=== PATIENT | male | born 1955 | race Caucasian/White ===

== ENCOUNTER 2018-04-24 20:03 | Inpatient (IN) | payer MEDICARE ==
[~2018-04-24 20:03] MED LIST: ISOVUE-370 76%-LOCM 1 ML ONE
[2018-04-24] MEDS ORDERED: Azithromycin 500 MG VIAL ONE (21:51)
[2018-04-24] MEDS ORDERED: cefTRIAXone\\ROCEPHIN 2 GM VIAL ONE (21:51)
[2018-04-24 22:02] LABS: Band 14 % (5-11); Hemoglobin 14.6 g/dL (14.0-18.0); Lymphocytes 3 % (21-51); MDiff Complete? YES; Mean Corpuscular HGB CONC 33.2 g/dL (32.0-36.0); Mean Corpuscular Hemoglobin 31.3 pg (27.0-31.0); Mean Corpuscular Volume 94.2 fL (78.0-98.0); Mean Platelet Volume 6.6 fL (7.4-10.4); Monocytes 5 % (0-10); Neutrophil 78 % (42-75); Platelet Count 414 thou/uL (130-400); Platelet Morphology Comment Appears Increased; Red Blood Cell (RBC) Count 4.67 mill/uL (4.70-6.10); White Blood Cell (WBC) Count 22.7 thou/uL (4.8-10.8)
[2018-04-24 22:11] LABS: ALT (SGPT) 42 U/L (8-55); AST (SGOT) 42 U/L (5-34); Albumin 3.2 g/dL (3.4-4.8); Alkaline Phosphatase 97 U/L (40-150); Anion Gap 14 mmol/L (10-20); BUN (Urea Nitrogen) 12 mg/dL (8.4-25.7); Bilirubin, Total 0.4 mg/dL (0.2-1.2); Calc. Creatinine Clearance 0 mL/min (70-130); Calcium 8.4 mg/dL (7.8-10.44); Carbon Dioxide 24 mmol/L (23-31); Chloride 98 mmol/L (98-107); Estimated GFR-MDRD Greater than 90; Globulin 3.5 g/dL (2.4-3.5); Glucose 119 mg/dL (80-115); Potassium 5.3 mmol/L (3.5-5.1); Protein, Total 6.7 g/dL (5.8-8.1); Sodium 131 mmol/L (136-145)
--- NOTE | 2018-04-24 22:19 | RAD ---
PA AND LATERAL CHEST RADIOGRAPH: Date: 04-24-18 History: Flu like symptoms for the last week. Comparison: 11-28-13 FINDINGS: There are increased interstitial densities with reticular nodular pattern seen throughout the lungs b ilaterally. Findings are worrisome for infectious process and possibly atypical infectious process. N o consolidation or pleural fluid is seen. The cardiac silhouette and pulmonary vasculature are within normal limits. Degenerative changes are seen in the spine. Vascular calcifications are seen in the t horacic aorta. IMPRESSION: Interval development of increased interstitial densities with reticulo-nodular pattern. Findings are worrisome for infectious process, and atypical infectious process is a possibility. POS: [facility]
[2018-04-24] MEDS ORDERED: Sodium Chloride 0.9% 1,000 ML IV SCH (23:49)
[2018-04-24] MEDS ORDERED: Senokot S 8.6-50 MG TAB PO PRN (23:49)
[2018-04-25 00:02] LABS: HIV (1/2) Antibody/Antigen Non-Reactive (NonReactive); HIV 1/2 INDEX 0.18 S/CO (<1.00)
--- NOTE | 2018-04-25 00:50 | HP ---
REASON FOR ADMISSION: Acute respiratory failure with hypoxia, sepsis, and pneumonia. HISTORY OF PRESENTING ILLNESS: The patient gives history of having bilateral chest pain, which is more like cramping feeling from last 3 weeks off and on. He tried NyQuil for a week, had no relief, then tried Tylenol p.m. with which he would break out in sweats. He has had evening fevers. He is expectorating yellowish sputum from last one week now. Prior to this, his coughing spells had mucoid white phlegm. No hemoptysis. 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 He has never been to [facility] or to any correction, and has never been out of the country. In 2016, the patient has had coughing spells and had seen Dr. Silva, and had a full PFT workup done and was told he did not have COPD. PAST MEDICAL AND SURGICAL HISTORY: Hypothyroidism, left knee surgery x4, hernia repair x3, they were all inguinal hernias. Colonoscopy done more than 10 years ago, which did not reveal any malignancy. CURRENT MEDICATION: Levothyroxine 200 mcg p.o. daily. ALLERGIES: NO KNOWN DRUG ALLERGIES. PERSONAL HISTORY: Smokes one pack a day and has been doing so for the last 25 years. Does not abuse alcohol or drugs. He lives alone. 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 FAMILY HISTORY: Mother is living and is 87 years old. She has had history of stomach cancer diagnosed recently. His biological father at the age of 64 years and was a heavy alcoholic. CODE STATUS: Full. POWER OF BET TAKER: His mom and stepdad. REVIEW OF SYSTEMS: CONSTITUTIONAL: Negative for weight loss or gain, ability to conduct usual activities. SKIN: Negative for rash, itching. EYES: Negative for double vision, pain. ENT/MOUTH: Negative for nose bleeding, neck stiffness, pain, tenderness. CARDIOVASCULAR: Negative for palpitations, dyspnea on exertion, orthopnea. RESPIRATORY: Negative for shortness of breath, wheezing, cough, hemoptysis, fever or night sweats. GASTROINTESTINAL: Negative for poor appetite, abdominal pain, heartburn, nausea , vomiting, constipation, or diarrhea. GENITOURINARY: Negative for urgency, frequency, dysuria, nocturia. MUSCULOSKELETAL: Negative for pain, swelling. NEUROLOGIC/PSYCHIATRIC: Negative for anxiety, depression. ALLERGY/IMMUNOLOGIC: Negative for skin rash, bleeding tendency. PHYSICAL EXAMINATION: GENERAL: The patient is a 63-year-old male, who is currently not in any acute distress. VITAL SIGNS: Blood pressure 128/76, pulse 106 per minute, respiratory rate 18 per minute, temperature 100.4 degrees Fahrenheit. Initial saturations were 80% on room air and has promptly come up to 94% on 4 L nasal cannula. NECK: Supple. No elevated JVD. HEENT: Eyes; extraocular muscles intact. Pupils reacting to light. Oral cavity, mucous membranes are dry. No exudates or congestion. CARDIOVASCULAR SYSTEM: S1 and S2 heard. Regular rhythm. RESPIRATORY SYSTEM: Air entry 1+ bilateral. Scattered rhonchi plus bilateral. ABDOMEN: Soft. Bowel sounds heard. No tenderness, rigidity, or guarding. EXTREMITIES: No peripheral edema or calf tenderness. VASCULAR SYSTEM: Peripheral pulses are 2+ bilaterally. No ischemic ulcerations or gangrene. CENTRAL NERVOUS SYSTEM: No gross focal deficits noted. The patient is alert, awake, oriented well. PSYCHIATRIC SYSTEM: The patient's mood is euthymic. No hallucinations or delusions. LABORATORY DATA: Chest x-ray done shows increased interstitial densities in reticular nodular pattern. Influenza A and B antigens are negative. Sodium 131 , potassium 5.3. Serum bicarb 24, BUN 12, creatinine 0.8, serum glucose 119, lactic acid 1.1. AST and ALT are 42 each. CK levels 257. First set of cardiac enzymes are negative. BNP 18. Albumin is 3.2. White count of 22, H and H are 14 and 44, platelet count is 414, MCV is 94 with 78% neutrophils and 14% bands. CLINICAL IMPRESSION AND PLAN: The patient will be admitted to telemetry for sepsis, atypical pneumonia, acute respiratory failure with hypoxia. Blood and sputum cultures will be obtained. CT angio chest has been ordered and will await the results of the same. He will be on ceftriaxone and Zithromax. We will gently hydrate him with normal saline at 60 mL per hour. The patient has received 30 mL per kg IV infusion in the ER. He will be on Mucinex, Tessalon Perles, and home dose of Synthroid. Echo with 2D Doppler for LV function. HIV 1 and 2 antigen will be obtained as well along with respiratory virus panel PCR. It is unclear if the patient has underlying pulmonary fibrosis. We will obtain consultation with Dr. Silva, his clamp remover. Job ID: [id number] [facility]
[2018-04-25 04:38] VITALS: BMI 28.8
[2018-04-25 05:00] LABS: Anion Gap 10 mmol/L (10-20); BUN (Urea Nitrogen) 9 mg/dL (8.4-25.7); Calc. Creatinine Clearance 126 mL/min (70-130); Calcium 8.2 mg/dL (7.8-10.44); Carbon Dioxide 25 mmol/L (23-31); Chloride 101 mmol/L (98-107); Estimated GFR-MDRD Greater than 90; Glucose 115 mg/dL (80-115); Potassium 4.1 mmol/L (3.5-5.1); Sodium 132 mmol/L (136-145)
[2018-04-25 05:09] LABS: Band 14 % (5-11); Hemoglobin 13.4 g/dL (14.0-18.0); Lymphocytes 5 % (21-51); MDiff Complete? YES; Mean Corpuscular HGB CONC 33.8 g/dL (32.0-36.0); Mean Corpuscular Hemoglobin 31.8 pg (27.0-31.0); Mean Corpuscular Volume 94.3 fL (78.0-98.0); Mean Platelet Volume 6.5 fL (7.4-10.4); Monocytes 11 % (0-10); Neutrophil 70 % (42-75); Platelet Count 362 thou/uL (130-400); Platelet Morphology Comment Appears Adequate; RBC Distribution Width 10.8 % (11.5-14.5); White Blood Cell (WBC) Count 19.6 thou/uL (4.8-10.8)
[2018-04-25 07:34] LABS: Legionella Urinary Ag Negative (Negative)
[2018-04-25 07:35] LABS: Strep pneumo Urine Ag NEGATIVE (NEGATIVE)
--- NOTE | 2018-04-25 08:16 | CT ---
CT ANGIOGRAM THORAX WITH IV CONTRAST AND 3D RECONSTRUCTIONS: Date: 04-24-18 History: Cough. Comparison: None available. FINDINGS: No filling defects are seen in the pulmonary arteries to suggest pulmonary embolus. Vascular calcific ations are seen in the aortic arch. The thoracic aorta is normal in caliber without evidence of an ao rtic dissection. There are nodular and reticular nodular densities seen bilaterally with punctate areas of cavitation in several of the nodular densities. There is an area of parenchymal consolidation within the right l maria esther apex medial aspect of the right upper lobe. These nodular and reticular nodular densities are see n diffusely throughout the lungs bilaterally but predominately within the mid and upper lung zones. There is mediastinal and hilar lymphadenopathy present. The largest pretracheal lymph node measures a pproximately 1.2 cm in short axis dimension with a subcarinal lymph node measuring 1.3 cm in short ax is dimension and there is a right hilar lymphnode measuring 1.7 cm in short axis dimension. Large pre vascular space and AP window lymph nodes are also present. Lymphadenopathy may be reactive in origin. No pleural effusion is present. There is suggestion of mild emphysematous changes in the upper lung z ones. There is a subcentimeter too small to characterize hyperdense lesion in the lateral segment left hepa tic lobe with a larger approximately 2.3 cm hypodense lesion adjacent to the caudate lobe of the live r demonstrating fluid attenuation and probably represents a small cyst. There are calcifications seen diffusely throughout the pancreas likely related to sequellae of prior pancreatitis. The remainder of the upper abdomen has a normal CT appearance. IMPRESSION: 1. Diffuse nodular and reticular nodular opacities throughout the lungs bilaterally and several of th e nodular densities demonstrate punctate areas of cavitation. Areas of consolidation are seen at each lung apex, greater on the right. Findings are likely related to infectious process and possibly atyp ical infectious process. Follow up to complete resolution is recommended to exclude malignancy. 2. Mediastinal and hilar lymphadenopathy, probably reactive in origin. This can also be re-evaluated on follow up examination. 3. No CT evidence of a pulmonary embolus. 4. Calcifications in the pancreas likely sequelae of prior pancreatitis. 5. Hepatic cysts. POS: [facility]
[2018-04-25] MEDS ORDERED: Benzonatate 100 MG CAP ONE (08:58)
[2018-04-25] MEDS ORDERED: Famotidine 20 MG TAB ONE (08:59)
[2018-04-25] MEDS ORDERED: Enoxaparin Sodium 40 MG/0.4 ML SYRINGE ONE (08:59)
[2018-04-25] MEDS: guaiFENesin ER 600 MG TAB PO SCH ×2 (09:30→19:38)
[2018-04-25] MEDS: Famotidine 20 MG TAB PO SCH ×2 (09:30→19:38)
[2018-04-25] MEDS: Enoxaparin Sodium 40 MG/0.4 ML SYRINGE SC SCH (09:30)
[2018-04-25] MEDS: Benzonatate 100 MG CAP PO SCH ×3 (09:30→19:38)
[2018-04-25] MEDS: Levothyroxine 175 MCG TAB PO SCH (11:53)
--- NOTE | 2018-04-25 16:07 | CON ---
DATE OF CONSULTATION: HISTORY OF PRESENT ILLNESS: Trinh Duque is a 63-year-old gentleman, lifelong smoker, started to cut back too, maybe a half pack a day and smoked a pack a day for most of his life, who for the last several days been having shortness of breath, cough, fever, chills, and sweats. Sputum is relatively clear from time to time. It is dark yellow and maybe somewhat bloody. He saw Dr. Silva in 2013. PFT was done at that time, which showed his diffusing capacity was decreased to my surprise. But, his expiratory flows and vital capacity were normal. He had apparently been exposed to some chemicals at work. He also is having some vague chest pain. He has lost some weight 10 or 15 pounds. He denies any alcohol abuse. 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 PAST MEDICAL HISTORY: Pertinent for arthritis and hypothyroidism PAST SURGICAL HISTORY: Previous surgeries include bilateral knee and hernia repair. MEDICATIONS: Chronic medications from home includes Synthroid 200 mcg a day. ALLERGIES: NONE. SOCIAL AND FAMILY HISTORY: Otherwise unremarkable. Lives alone. No travel history. No pets. REVIEW OF SYSTEMS: Ten-point negative. PHYSICAL EXAMINATION: VITAL SIGNS: O2 saturation is 90% on room air, respiratory rate 20, temperature 98, pulse 90, and blood pressure 132/72. CHEST: Bilateral crackles and rhonchi. CARDIAC: Sinus tach. ABDOMEN: Soft. No masses. LABORATORY DATA: His white count is 19,000, H and H 13 and 39, platelet count 362, 70 segs, and 14 bands. Sodium is 132. Chest x-ray shows diffuse bilateral pulmonary infiltrates, which are reticulonodular, some of them may be cavitary in nature. CAT scan confirmed the above findings. IMPRESSION: 1. Bilateral reticulonodular cavitary infiltrates. Rule out TB, fungus, malignancy. 2. Tobacco abuse. 3. History of hypothyroidism. PLAN: I am concerned about his multiple cavitary disease. Sputum for acid-fast being ordered. Continue antibiotics. Continue neb treatment. We will notify Dr. Silva. Supportive care. Consultation note, 70 minutes, 50% direct patient care. Job ID: [id number]
--- NOTE | 2018-04-25 16:24 | PDOC.PN ---
- Subjective Encounter Start Date: 04/25/18 Encounter Start Time: 16:22 Mr. Duque was seen today in follow-up of Pneumonia. He does not have any complaints. He feels like he is doing better today. - Objective Resuscitation Status - Order Detail: 04/24/18 23:43 Resuscitation Status Routine Resuscitation Status: FULL: Full Resuscitation Discussed with: POA: mother and step father MAR Reviewed: Yes Vital Signs & Weight: Vital Signs (12 hours) Temp Pulse Resp BP BP Pulse Ox 04/25/18 15:49 99 F 102 H 21 H 149/85 H 90 L 04/25/18 13:30 98.1 F 98 20 133/72 92 L 04/25/18 11:43 94 16 94 L 04/25/18 07:22 96 17 93 L Weight Weight 190 lb Result Diagrams: 04/25/18 03:38 04/25/18 03:38 Phys Exam - Physical Examination HEENT: PERRLA Respiratory: no wheezing, no rales, no rhonchi, clear to auscultation bilateral Cardiovascular: RRR, no significant murmur, no rub Gastrointestinal: soft, non-tender, no distention, positive bowel sounds Musculoskeletal: no edema, pulses present Dx/Plan (1) Pneumonia, community acquired Code(s): J18.9 - PNEUMONIA, UNSPECIFIED ORGANISM Status: Acute (2) Hypothyroidism Code(s): E03.9 - HYPOTHYROIDISM, UNSPECIFIED Status: Chronic - Plan * Community Acquired Pneumonia- continue the current antibiotics ( Rocephin and Azithromycin)- he has been placed in isolation due to concern for TB * Hypothyroidism- continue Levothyroxine
[2018-04-25] MEDS: Acetaminophen 325 MG TAB PO PRN (16:32)
[2018-04-25] MEDS: Temazepam 15 MG CAP PO PRN (22:58)
[2018-04-26] MEDS: Acetaminophen 325 MG TAB PO PRN ×2 (00:27→17:16)
[2018-04-26] MEDS: Guaifenesin DM 100-10/5 ML UDCUP PO PRN (00:28)
[2018-04-26] MEDS: Levothyroxine 175 MCG TAB PO SCH (05:26)
[2018-04-26 06:11] LABS: Band 3 % (5-11); Hemoglobin 13.9 g/dL (14.0-18.0); Lymphocytes 4 % (21-51); MDiff Complete? YES; Mean Corpuscular HGB CONC 31.8 g/dL (32.0-36.0); Mean Corpuscular Hemoglobin 30.3 pg (27.0-31.0); Mean Corpuscular Volume 95.3 fL (78.0-98.0); Mean Platelet Volume 6.4 fL (7.4-10.4); Monocytes 5 % (0-10); Neutrophil 88 % (42-75); Platelet Count 385 thou/uL (130-400); Platelet Morphology Comment Appears Adequate; RBC Morphology Normal; Red Blood Cell (RBC) Count 4.58 mill/uL (4.70-6.10); White Blood Cell (WBC) Count 20.1 thou/uL (4.8-10.8)
[2018-04-26 06:14] LABS: Anion Gap 12 mmol/L (10-20); BUN (Urea Nitrogen) 9 mg/dL (8.4-25.7); Calc. Creatinine Clearance 117 mL/min (70-130); Carbon Dioxide 29 mmol/L (23-31); Chloride 98 mmol/L (98-107); Estimated GFR-MDRD Greater than 90; Glucose 108 mg/dL (80-115); Potassium 4.3 mmol/L (3.5-5.1); Sodium 135 mmol/L (136-145)
[2018-04-26] MEDS: Benzonatate 100 MG CAP PO SCH ×3 (09:16→20:35)
[2018-04-26] MEDS: guaiFENesin ER 600 MG TAB PO SCH ×2 (09:16→20:35)
[2018-04-26] MEDS: Famotidine 20 MG TAB PO SCH ×2 (09:16→20:35)
[2018-04-26] MEDS: Enoxaparin Sodium 40 MG/0.4 ML SYRINGE SC SCH (09:17)
--- NOTE | 2018-04-26 14:53 | PDOC.PN ---
- Subjective Encounter Start Date: 04/26/18 Encounter Start Time: 14:52 Subjective: feels about the same.weak and easily winded.coughing - Objective Resuscitation Status - Order Detail: 04/24/18 23:43 Resuscitation Status Routine Resuscitation Status: FULL: Full Resuscitation Discussed with: POA: mother and step father ELENO Reviewed: Yes Vital Signs & Weight: Vital Signs (12 hours) Temp Pulse Resp BP BP Pulse Ox 04/26/18 13:32 98.6 F 100 20 127/74 96 04/26/18 11:49 102 H 20 96 04/26/18 08:27 99.5 F 102 H 20 135/76 94 L 04/26/18 08:00 94 L 04/26/18 06:51 99 18 96 04/26/18 04:40 98.5 F 86 20 131/79 94 L Weight Weight 190 lb I&O: 04/25/18 04/26/18 04/27/18 06:59 06:59 06:59 Intake Total 850 Output Total 820 Balance 30 Result Diagrams: 04/26/18 05:23 04/26/18 05:23 Additional Labs: Microbiology 04/24/18 20:24 Nasopharyngeal swab Influenza Types A,B Direct EIA - Final 04/25/18 15:04 Sputum Respiratory Culture - Preliminary 04/24/18 21:36 Venous blood - Left Arm Blood Culture - Preliminary Specimen has been received and culture in progress. No Growth to date. 04/24/18 21:30 Venous blood - Left Arm Blood Culture - Preliminary Specimen has been received and culture in progress. No Growth to date. Laboratory Tests 04/24/18 04/24/18 04/24/18 21:36 21:36 23:29 Troponin I Less than 0.010 C-Reactive Protein B-Natriuretic Peptide 18.3 HIV 1&2 Antigen & Ab Non-Reactive Ur L.pneumophila Ag Ur Strep pneumoniae Ag 04/25/18 04/25/18 04/25/18 00:01 06:30 06:30 Troponin I C-Reactive Protein 24.31 H B-Natriuretic Peptide HIV 1&2 Antigen & Ab Ur L.pneumophila Ag Negative Ur Strep pneumoniae Ag NEGATIVE Phys Exam - Physical Examination Constitutional: NAD HEENT: PERRLA, moist MMs, sclera anicteric, oral pharynx no lesions Neck: no nodes, no JVD, supple, full ROM Respiratory: no rales, no rhonchi, wheezing present Cardiovascular: RRR, no significant murmur Gastrointestinal: soft, non-tender, no distention, positive bowel sounds Musculoskeletal: no edema, pulses present Neurological: non-focal, normal sensation, moves all 4 limbs Psychiatric: normal affect, A&O x 3 Skin: no rash Dx/Plan (1) Sepsis Code(s): A41.9 - SEPSIS, UNSPECIFIED ORGANISM Status: Acute (2) Pneumonia, community acquired Code(s): J18.9 - PNEUMONIA, UNSPECIFIED ORGANISM Status: Acute Comment: bacterial Vs Fungal Vs Atypical. (3) Hypothyroidism Code(s): E03.9 - HYPOTHYROIDISM, UNSPECIFIED Status: Chronic - Plan DVT proph w/SCDs cont airborne precaution as AFB pending -: quantiferon and fungicell sent and pending -: May need to add antifungal.will consult ID -: on Empiric Abx for now -: wbc started to improve.follow blood Cx. supoortive care * .High risk for decompensation. * cont o2,nebs .IS etc * am labs Review of Systems - Review of Systems Constitutional: weakness, malaise. negative: fever, chills, sweats, other Respiratory: Cough, Shortness of Breath, SOB with Excertion, Sputum, Wheezing. negative: Dry, Hemoptysis, Pleuritic Pain Cardiovascular: negative: chest pain, palpitations, orthopnea, paroxysmal nocturnal dyspnea, edema, light headedness, other Gastrointestinal: negative: Nausea, Vomiting, Abdominal Pain, Diarrhea, Constipation, Melena, Hematochezia, Other Genitourinary: negative: Dysuria, Frequency, Incontinence, Hematuria, Retention , Other Musculoskeletal: negative: Neck Pain, Shoulder Pain, Arm Pain, Back Pain, Hand Pain, Leg Pain, Foot Pain, Other Neurological: negative: Weakness, Numbness, Incoordination, Change in Speech, Confusion, Seizures, Other - Medications/Allergies Allergies/Adverse Reactions: Allergies Allergy/AdvReac Type Severity Reaction Status Date / Time No Known Drug Allergies Allergy Verified 04/25/18 04:12 Medications: Current Medications Acetaminophen (Tylenol) 650 mg PO Q4H PRN PRN Reason: Headache/Fever/Mild Pain (1-3) Last Admin: 04/26/18 00:27 Dose: 650 mg Albuterol/Ipratropium (Duoneb) 3 ml NEB [id number] [facility] Last Admin: 04/26/18 11:49 Dose: 3 ml Benzonatate (Tessalon) 100 mg PO TID [facility] Last Admin: 04/26/18 14:47 Dose: 100 mg Enoxaparin Sodium (Lovenox) 40 mg SC 0900 [facility] Last Admin: 04/26/18 09:17 Dose: 40 mg Famotidine (Pepcid) 20 mg PO BID [facility] Last Admin: 04/26/18 09:16 Dose: 20 mg Guaifenesin (Mucinex) 600 mg PO Q12HR [facility] Last Admin: 04/26/18 09:16 Dose: 600 mg Guaifenesin/Dextromethorphan (Robitussin Dm) 15 ml PO Q4H PRN PRN Reason: Cough Last Admin: 04/26/18 00:28 Dose: 15 ml Azithromycin 500 mg/ Sodium (Chloride) 250 mls @ 250 mls/hr IVPB Q24HR [facility] Ceftriaxone Sodium 1 gm/ (Sodium Chloride) 100 mls @ 200 mls/hr IVPB Q24HR [facility] Levothyroxine Sodium (Synthroid) 175 mcg PO 0600 [facility] Last Admin: 04/26/18 05:26 Dose: 175 mcg Senna/Docusate Sodium (Senokot S) 2 tab PO BID PRN PRN Reason: Constipation Sodium Chloride (Flush - Normal Saline) 10 ml IVF Q12HR [facility] Last Admin: 04/26/18 09:17 Dose: 10 ml Sodium Chloride (Flush - Normal Saline) 10 ml IVF PRN PRN PRN Reason: Saline Flush Temazepam (Restoril) 15 mg PO HSPRN PRN PRN Reason: Insomnia Last Admin: 04/25/18 22:58 Dose: 15 mg
[2018-04-26 17:36] LABS: Hep C IgG Ab Non-Reactive (NonReactive)
--- NOTE | 2018-04-26 17:54 | PRG ---
DATE OF SERVICE: 04/26/2018 SUBJECTIVE: Mr. Duque's events have been reviewed. He was seen by me several years back with a cough. His x-ray and PFTs were normal. I will have to pull my chart to review those records, but he tells me I have prescribed him a nasal inhaler and he has been doing great since then. He said he has had a downhill course for the last 2 months, however. I reviewed his CT with my associate, Dr. Kennedy. He is currently in isolation. I do not see where any sputum for acid-fast bacilli have been reported out. OBJECTIVE: GENERAL: On exam, he is in no distress. VITAL SIGNS: He is afebrile. Heart rate is 100, respiratory rate is 20, oximetry is 96% on 3 L, and blood pressure 127/74. LUNGS: Clear. HEART: Regular rhythm. ABDOMEN: Soft. IMPRESSION: Upper lobe predominant interstitial nodular and cavitary disease. I doubt this is a vasculitis. It is not typical for malignant process. We will rule out first his tuberculosis. Acute or subacute fungal process is also possible. I would not proceed straight to bronchoscopy and wait until we have some negative acid-fast smears. I have written an order for nebulized albuterol followed by sputum in the morning. Job ID: [id number]
--- NOTE | 2018-04-26 20:14 | CON ---
DATE OF CONSULTATION: 04/26/2018 REASON FOR CONSULTATION: Pneumonia. HISTORY OF PRESENT ILLNESS: A 63-year-old patient looks like first admission to [facility] with a history of chronic smoking and what he describes is persistent cough for the past 2 months and now worsening cough with sputum production and fever for the past 2 weeks approximately, he started expectorating yellow sputum more recently, eventually ended up admitted. Apparently, he did have some hemoptysis after admission observed by staff. No headaches or visual symptoms. No dental pain. No back pain. No abdominal pain or diarrhea. No genitourinary symptoms. No other joint symptoms. No neurological symptoms or skin disorder. PAST MEDICAL HISTORY: Hypothyroidism, arthroscopy, hernia repair, and colonoscopy with polyps. ALLERGIES: NONE. SOCIAL HISTORY: Current smoker and smokes daily 1 pack for many years. 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 FAMILY HISTORY: Gastric cancer. ALLERGIC HISTORY: No known drug allergies. CURRENT MEDICATIONS: 1. Azithromycin. 2. Ceftriaxone. 3. Levothyroxine. 4. Other p.r.n. medications. OBJECTIVE: VITAL SIGNS: T-max 99.5, blood pressure 120/70, pulse 100, respirations 20, and O2 saturation 96%. SKIN: No areas of skin breakdown. No petechia or purpura. LYMPHATICS: No lymphadenopathy. HEENT: Ocular movements conjugate. Sclerae white. Pupils are equal. Nasal passages patent. Oral cavity with numerous missing teeth. NECK: Supple. No jugular vein distention. No carotid bruits. LUNGS: Symmetric air entry. Faint inspiratory crackles scattered. Faint wheezing scattered. HEART: S1 and S2, regular rate. No S3 or S4. ABDOMEN: Soft. Not distended or tender. No ascites. No organomegaly. : No bladder distention. MUSCULOSKELETAL: No joint inflammatory activity. EXTREMITIES: No edema. Pulses 1+ in dorsalis pedis. Plantar responses are flexor. No clonus. Strength in all extremities is preserved. NEUROLOGIC: Cognitive function appears to be intact. Speech is normal. LABORATORY DATA: White cell count 22,000 and now 20,000, hemoglobin 14 and 13, platelets 414 and now 385, 88% neutrophils, bands are down from 14 to 3. Creatinine 0.8. AST 42, ALT 42, alkaline phosphatase 97. BNP 18, CRP 24, albumin 3.2, and globulin 3.5. Legionella and Strep pneumo antigen negative. HIV nonreactive. Microbiology with gram-positive cocci retrieved from one set of blood cultures yet to be fully identified. Respiratory virus PCR panel was negative. DIAGNOSTIC DATA: The patient had an echocardiogram, which showed EF 55% to 60% . No other significant findings. The patient had a CT of chest, which demonstrated diffuse nodular and reticulonodular opacities throughout the lungs bilaterally and several of the nodular densities demonstrate punctate areas of cavitation. This areas of consolidation are seen at each lung apex greater on the right with mediastinal hilar lymphadenopathy. The patient had a gastric biopsy in 2013, which showed just H. pylori and he also had a Carvalho's mucosa. ASSESSMENT: Chronic cough, now with exacerbation of cough, sputum production, and fever, and those findings on CT of chest, which are concerning for an atypical lung infection including possibility of mycobacterium tuberculosis as well as a fungal infection. Atypical mycobacterial infection also considered. We will submit sputums for AFB culture and stain and fungal stains as well. Submit QuantiFERON. Continue current antimicrobials. Monitor results of the blood culture and then determine the significance of the finding. Check hepatitis C serology. Other possibilities include hypersensitivity or cryptogenic pneumonitis, malignancy and vasculitis but those are less likely. Job ID: [id number] [facility]
[2018-04-26] MEDS: cefTRIAXone\\ROCEPHIN 1 GM in Sodium Chloride 0.9% 100 ML IVPB SCH (20:33)
[2018-04-26] MEDS: Temazepam 15 MG CAP PO PRN (20:35)
[2018-04-26] MEDS: Azithromycin 500 MG in Sodium Chloride 0.9% 250 ML 250 ML IVPB SCH (21:36)
[2018-04-27] MEDS: Acetaminophen 325 MG TAB PO PRN ×2 (00:43→20:41)
[2018-04-27] MEDS: Levothyroxine 175 MCG TAB PO SCH (05:41)
[2018-04-27] MEDS: Albuterol Sulfate 2.5 mg/3 ml Neb NEB SCH (06:49)
[2018-04-27 07:27] LABS: #Basophils 0.1 thou/uL (0.0-0.2); #Eosinphils 0.2 thou/uL (0.0-0.7); #Lymphocytes 1.8 thou/uL (1.20-3.40); #Neutrophils 18.1 thou/uL (1.40-6.50); %Basophils 0.4 % (0.0-1.0); %Eosinophils 0.9 % (0.0-10.0); %Lymphocytes 8.3 % (21.0-51.0); %Neutrophils 81.5 % (42.0-75.0); Mean Corpuscular HGB CONC 32.9 g/dL (32.0-36.0); Mean Corpuscular Hemoglobin 31.4 pg (27.0-31.0); Mean Corpuscular Volume 95.5 fL (78.0-98.0); Mean Platelet Volume 6.4 fL (7.4-10.4); Platelet Count 398 thou/uL (130-400); Red Blood Cell (RBC) Count 4.46 mill/uL (4.70-6.10); White Blood Cell (WBC) Count 22.2 thou/uL (4.8-10.8)
[2018-04-27 07:42] LABS: Anion Gap 14 mmol/L (10-20); BUN (Urea Nitrogen) 8 mg/dL (8.4-25.7); Calc. Creatinine Clearance 135 mL/min (70-130); Calcium 8.7 mg/dL (7.8-10.44); Carbon Dioxide 25 mmol/L (23-31); Chloride 96 mmol/L (98-107); Estimated GFR-MDRD Greater than 90; Glucose 121 mg/dL (80-115); Potassium 4.1 mmol/L (3.5-5.1); Sodium 131 mmol/L (136-145)
[2018-04-27] MEDS: guaiFENesin ER 600 MG TAB PO SCH ×2 (08:59→20:41)
[2018-04-27] MEDS: Famotidine 20 MG TAB PO SCH ×2 (08:59→20:41)
[2018-04-27] MEDS: Enoxaparin Sodium 40 MG/0.4 ML SYRINGE SC SCH (08:59)
[2018-04-27] MEDS: Benzonatate 100 MG CAP PO SCH ×3 (08:59→20:41)
--- NOTE | 2018-04-27 10:32 | PRG ---
DATE OF SERVICE: 04/27/2018 SUBJECTIVE: The patient is seen and examined at the bedside. He coughs some sputum with a blood-tinged component. His appetite is fair. Activity is at his baseline. OBJECTIVE: VITAL SIGNS: Blood pressure is 126/79, pulse is 107, temperature 98.6, respiratory rate is 20, O2 saturation is 94% on 3 L by nasal cannula. HEENT: His head is atraumatic and normocephalic. Eyes are PERRLA. Sclerae are nonicteric. Oral mucosa is moist. NECK: Supple. LUNGS: Few crackles at both bases. No wheezing. HEART: S1 and S2 are normal. Somewhat tachycardic. No S3. No S4. ABDOMEN: Soft, nontender, and nondistended. EXTREMITIES: No clubbing, cyanosis, or edema. NEUROLOGIC: He is alert and oriented x3. There are no any motor or sensory deficits. LABORATORY DATA: Showed white count of 22.2, hemoglobin 14.0, hematocrit 42.6, platelet count is 398,000. Sodium of 131, potassium 4.1, chloride 96, CO2 of 25, BUN 8, creatinine 0.69, calcium 8.7, glucose 121. Hepatitis C antibody is nonreactive. Antigen for Legionella in urine, negative. Streptococcus pneumoniae antigen in urine, negative. Microbiology: Respiratory virus panel, negative. Acid-fast bacillus smear x1, negative. Respiratory culture, preliminary Gram stain; 0 to 5 epithelial cells, many wbc's, few gram-positive cocci, and few gram-variable rods. 1 out of 2 blood cultures came back positive for Micrococcus/Kocuria, which is felt to be a contaminant. IMPRESSION: 1. Upper lobe predominant interstitial nodular and cavitary disease, suspicious for infectious etiology. The patient had one AFB on sputum testing done, which came back negative. Two more still pending. He is on isolation. Most likely, he will have bronchoscopy by Dr. Silva tomorrow. 2. Hypothyroidism. PLAN: We are awaiting for and QuantiFERON results. Also, acid-fast bacilli x2 sputum testing. He will continue on empiric antibiotics. So far, the workup is negative. Echocardiogram did not show any significant abnormalities. DVT prophylaxis with SCDs and Lovenox. Job ID: [id number]
--- NOTE | 2018-04-27 13:22 | PRG ---
DATE OF SERVICE: 04/27/2018 SUBJECTIVE: Trinh Duque's first AFB smear was negative, but was small quantity. OBJECTIVE: VITAL SIGNS: Heart rate 107. He is afebrile, respiratory rate 18, and oximetry is 94. He is on 3 L a minute. LUNGS: Unchanged. HEART: Unchanged. ABDOMEN: Unchanged. IMPRESSION: Nodular interstitial infiltrates, consistent with an inflammatory process of unclear etiology. Once he has 2 to 3 negative AFBs, probably proceed with bronchoscopy and perhaps transbronchial biopsies. We will continue to follow. Job ID: [id number]
[2018-04-27] MEDS: Guaifenesin DM 100-10/5 ML UDCUP PO PRN (14:36)
--- NOTE | 2018-04-27 16:02 | PRG ---
DATE OF SERVICE: 04/27/2018 SUBJECTIVE: Trinh Duque is still about the same with cough, some sputum production. No chest pain. No abdominal pain or diarrhea. OBJECTIVE: VITAL SIGNS: T-max 98.6 to 99.2, blood pressure 126/79, pulse 107, respirations 18, and O2 saturation 94. LUNGS: Scattered rhonchi and crackles in lung barrera, right and left side. HEART: S1 and S2, regular rate. ABDOMEN: Soft. EXTREMITIES: No edema. NEURO: Nonfocal. LABORATORY DATA: White cell count 22,000, hemoglobin 14, platelets 398 with 81% neutrophils. Sodium 131, creatinine 0.69. All three AFB stains have been negative. ASSESSMENT AND DISCUSSION: Chronic cough with exacerbation lately, sputum production, fever, and abnormalities noted on CT of chest. Again, differential diagnosis includes an atypical lung infection versus noninfectious causes of pneumonitis including cryptogenic organizing pneumonia, malignancy would be less likely. Asthma, as discussed by Dr. Silva, a bronchoscopy will likely be needed for diagnostic purpose. Mycobacterial infection seems to be unlikely in view of the negative smears. With this widespread infiltrates, one would expect positive smears if he did have mycobacterial infection. Job ID: [id number] [facility]
[2018-04-27] MEDS: Temazepam 15 MG CAP PO PRN (20:41)
[2018-04-27] MEDS: cefTRIAXone\\ROCEPHIN 1 GM in Sodium Chloride 0.9% 100 ML IVPB SCH (20:42)
[2018-04-27] MEDS: Azithromycin 500 MG in Sodium Chloride 0.9% 250 ML 250 ML IVPB SCH (22:40)
[2018-04-28] MEDS: Guaifenesin DM 100-10/5 ML UDCUP PO PRN ×4 (01:27→16:23)
[2018-04-28] MEDS: Acetaminophen 325 MG TAB PO PRN ×3 (05:28→20:20)
[2018-04-28] MEDS: Levothyroxine 175 MCG TAB PO SCH (05:28)
[2018-04-28] MEDS: Albuterol Sulfate 2.5 mg/3 ml Neb NEB SCH (08:57)
[2018-04-28] MEDS: Enoxaparin Sodium 40 MG/0.4 ML SYRINGE SC SCH (10:15)
[2018-04-28] MEDS: guaiFENesin ER 600 MG TAB PO SCH ×2 (10:15→20:19)
[2018-04-28] MEDS: Benzonatate 100 MG CAP PO SCH ×3 (10:15→20:19)
[2018-04-28] MEDS: Famotidine 20 MG TAB PO SCH ×2 (10:15→20:19)
--- NOTE | 2018-04-28 12:01 | PRG ---
DATE OF SERVICE: 04/28/2018 SUBJECTIVE: The patient is seen and examined at the bedside. He is in isolation. He feels better. He noticed improvement in his respirations and the amount he coughs up of sputum which is still tinged with some blood, but the volume is significantly decreased. OBJECTIVE: VITAL SIGNS: Blood pressure is 137/70, pulse is 93, temperature is 97.7, maximal temperature is 100.1, respiratory rate is 16, and O2 saturation is 94% on room air. HEENT: His head is atraumatic and normocephalic. Eyes are PERRLA. Sclerae nonicteric. Oral mucosa is moist. NECK: Supple. LUNGS: Clear. HEART: S1 and S2, normal. No S3. No S4. No any murmur. ABDOMEN: Soft and nontender. Bowel sounds are present. No organomegaly. EXTREMITIES: No clubbing, cyanosis, or edema. NEUROLOGIC: He follows my commands. There is no any motor or sensory deficits present. Cranial nerves are intact. LABORATORY DATA: None today except for microbiology. We have two AFBs back and they are negative and two more pending. Respiratory viral panel came back negative for any viral infection. Hepatitis C antibody came back nonreactive. IMPRESSION: 1. Upper lobe predominant interstitial nodule and cavitary disease suspicious for infectious etiology. Clinically improved on labs, AFBs X2 negative. 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 2. Hypothyroidism, on replacement. Continue coverage with azithromycin and ceftriaxone and Mucinex and DuoNebs. Job ID: [id number]
--- NOTE | 2018-04-28 15:54 | PRG ---
DATE OF SERVICE: 04/28/2018 SUBJECTIVE: Mr. Duque is about the same. No chest pain, little bit of cough, quite a bit of sputum production, which is purulent. No abdominal pain or diarrhea. No genitourinary symptoms. No neurological symptoms. OBJECTIVE: VITAL SIGNS: T-max 101.4 just a while ago, blood pressure 116/80, pulse 99, respirations 20. GENERAL: Awake, alert, oriented. LUNGS: Scattered lung crackles particularly at the bases. HEART: S1 and S2. Regular rate. ABDOMEN: Soft, not distended. LABORATORY DATA: White cell count 22,000, hemoglobin 14, platelets 398, and 81% neutrophils. Sodium 131, creatinine 0.69. Fungitell negative. Strep and Legionella pneumonia negative. HIV negative. Hepatitis C nonreactive. Acid-fast, we have three samples submitted, and no acid-fast bacillus was seen in any of those three. ASSESSMENT AND DISCUSSION: Chronic cough with exacerbation lately, sputum production, fever, and abnormalities noted on CT scan, atypical lung infection versus noninfectious causes as discussed previously within the differential diagnosis. Probably, he will need a bronchoscopy. According to Dr. Silva, in discussions with the patient, he did have exposures in areas that are prevalent for endemic coccidioidomycosis and certainly that would be within the realm of possibilities. Coccidioides immitis serology submitted, but the diagnosis would depend on positive stains and cultures from the airway secretions. Job ID: [id number]
[2018-04-28] MEDS: cefTRIAXone\\ROCEPHIN 1 GM in Sodium Chloride 0.9% 100 ML IVPB SCH (16:10)
--- NOTE | 2018-04-28 18:38 | PRG ---
DATE OF SERVICE: 04/28/2018 AFB smears are all negative. He says he feels about the same. He is afebrile, although, this afternoon, he did have a temperature of 101.4. I have stopped his azithromycin. Heart rate 103, respiratory rate 18, oximetry is 93. I have recommended fiberoptic bronchoscopy with washings, brushings, and perhaps transbronchial biopsies tomorrow. He is agreeable to proceed. I met with his mother and father and discussed it with them as well. Risk of bleeding, infection, lung collapse were explained, least likely . He is willing to proceed. Job ID: [id number]
[2018-04-29] MEDS: Guaifenesin DM 100-10/5 ML UDCUP PO PRN (00:30)
[2018-04-29] MEDS: Temazepam 15 MG CAP PO PRN (00:30)
[2018-04-29] MEDS: Acetaminophen 325 MG TAB PO PRN (00:35)
[2018-04-29] MEDS: Levothyroxine 175 MCG TAB PO SCH (06:16)
[2018-04-29] MEDS: Albuterol Sulfate 2.5 mg/3 ml Neb NEB SCH (07:50)
[2018-04-29] MEDS: Benzonatate 100 MG CAP PO SCH ×3 (08:50→21:26)
[2018-04-29] MEDS: Famotidine 20 MG TAB PO SCH ×2 (08:50→21:26)
[2018-04-29] MEDS: Enoxaparin Sodium 40 MG/0.4 ML SYRINGE SC SCH (08:50)
[2018-04-29] MEDS: guaiFENesin ER 600 MG TAB PO SCH ×2 (08:50→21:26)
[2018-04-29] MEDS ORDERED: Ondansetron HCl/PF 4 MG/2 ML Vial IVP PRN (08:52)
[2018-04-29] MEDS ORDERED: Promethazine HCl 25 MG/ML VIAL IM PRN (08:52)
[2018-04-29] MEDS ORDERED: Promethazine HCl 25 MG/ML VIAL SLOW IVP PRN (08:52)
--- NOTE | 2018-04-29 08:54 | PRG ---
DATE OF SERVICE: 04/29/2018 SUBJECTIVE: The patient is seen and examined at bedside. He is in isolation. He has some concern about his testicles and he says that he has some discomfort and felt that maybe the left testicle was swollen. Otherwise, he is doing quite well and still has productive cough with bloodish phlegm . OBJECTIVE: VITAL SIGNS: Blood pressure is 132/77, pulse is 104, respiratory rate is 20, O2 saturation is 93% on 3 L by nasal cannula. His temperature is 99.2, maximal temperature is 101.4. HEENT: His head is atraumatic and normocephalic. Eyes are PERRLA. Sclerae are nonicteric. Oral mucosa is moist. NECK: Supple. LUNGS: Clear. HEART: S1, S2 normal. No S3. No S4. No any murmur. ABDOMEN: Soft, nontender, nondistended. GENITOURINARY: Scrotum and penis look normal. There is no swelling. There is no redness. There is no any visible or palpable problem. EXTREMITIES: No clubbing, cyanosis, or edema. NEUROLOGICAL EXAMINATION: He follows my commands. He moves his all four extremities. There is no any motor or sensory deficit present. Cranial nerves are intact. LABORATORY DATA: Pending. IMPRESSION: 1. Upper lobe predominant interstitial nodular and cavitary disease suspicious for infectious etiology with a high white count and fever. So far, the workup is negative. going for bronchoscopy this morning by Dr. Silva. 2. Hypothyroidism, on replacement. PLAN: Plan is to continue isolation until we have full AFB samples negative and continue antibiotics such a DuoNeb and anti-cough medicine. Job ID: [id number]
[2018-04-29] MEDS ORDERED: Fentanyl 100 MCG/2 ML VIAL ONE (09:13)
[2018-04-29] MEDS ORDERED: Propofol 500 MG/50 ML VIAL ONE ×2 (09:13)
[2018-04-29] MEDS ORDERED: Lidocaine 1% (PF) 30 ML VIAL ONE (09:38)
[2018-04-29] MEDS ORDERED: Lidocaine 2% Jelly 5 ML TUBE ONE (09:38)
[2018-04-29] MEDS ORDERED: Glycopyrrolate 0.2 MG/ML 5 ML SYRINGE ONE (13:56)
[2018-04-29] MEDS ORDERED: Rocuronium Bromide 10 MG/ML (10ML VIAL) ONE (13:56)
[2018-04-29] MEDS ORDERED: Dexamethasone 20 MG/5 ML VIAL ONE (13:56)
[2018-04-29] MEDS ORDERED: PROPOFOL 200 MG/20 ML VIAL ONE (13:56)
[2018-04-29] MEDS ORDERED: Ondansetron PF 4 MG/2 ML Vial ONE (13:56)
[2018-04-29] MEDS ORDERED: PHENYLEPHRINE-NS 100 MCG/ML 10 ML SYRINGE ONE (13:56)
[2018-04-29] MEDS ORDERED: Lidocaine 1% PF 5 ML VIAL ONE (13:56)
--- NOTE | 2018-04-29 15:30 | RAD ---
AP VIEW CHEST: Date; 04/29/18 HISTORY: 63-year-old male with respiratory distress, lung abnormalities, productive cough, and night sweats. FINDINGS: Comparison made to previous exam from 04/24/18. AP view of chest demonstrates extensive increased interstitial markings throughout the lungs, as well as reticulonodular densities. Findings similar in appearance to previous radiograph from 04/24/18. D ifferential diagnosis includes infectious etiologies. IMPRESSION: Extensive interstitial and reticulonodular densities, which are stable since the previous exam from 0 04/24/18. No evidence of pneumothorax seen. POS: [facility]
[2018-04-29] MEDS: cefTRIAXone\\ROCEPHIN 1 GM in Sodium Chloride 0.9% 100 ML IVPB SCH (16:22)
--- NOTE | 2018-04-29 17:02 | EKG ---
Test Reason : Blood Pressure : / mmHG Vent. Rate : 102 BPM Atrial Rate : 102 BPM P-R Int : 134 ms QRS Dur : 086 ms QT Int : 332 ms P-R-T Axes : 056 019 061 degrees QTc Int : 432 ms Sinus tachycardia Otherwise normal ECG Confirmed by JUDY GANDHI ([id number]), medical transcription editor AIDE NARANJO ([id number]) on 04/29/2018 5:02:07 PM Referred By: Confirmed By:JUDY GANDHI
[2018-04-30] MEDS: Levothyroxine 175 MCG TAB PO SCH (05:51)
[2018-04-30] MEDS: Enoxaparin Sodium 40 MG/0.4 ML SYRINGE SC SCH (07:45)
[2018-04-30] MEDS: guaiFENesin ER 600 MG TAB PO SCH ×2 (07:46→20:24)
[2018-04-30] MEDS: Benzonatate 100 MG CAP PO SCH ×3 (07:46→20:24)
[2018-04-30] MEDS: Famotidine 20 MG TAB PO SCH ×2 (07:46→20:24)
[2018-04-30 09:28] LABS: #Eosinphils 0.1 thou/uL (0.0-0.7); #Lymphocytes 1.8 thou/uL (1.20-3.40); #Monocytes 1.2 thou/uL (0.11-0.59); #Neutrophils 13.3 thou/uL (1.40-6.50); %Basophils 0.1 % (0.0-1.0); %Eosinophils 0.7 % (0.0-10.0); %Lymphocytes 11.2 % (21.0-51.0); %Monocytes 7.2 % (0.0-10.0); %Neutrophils 80.8 % (42.0-75.0); Hemoglobin 12.9 g/dL (14.0-18.0); Mean Corpuscular HGB CONC 33.6 g/dL (32.0-36.0); Mean Corpuscular Hemoglobin 32.3 pg (27.0-31.0); Mean Platelet Volume 6.2 fL (7.4-10.4); Platelet Count 514 thou/uL (130-400); Red Blood Cell (RBC) Count 3.99 mill/uL (4.70-6.10); White Blood Cell (WBC) Count 16.4 thou/uL (4.8-10.8)
--- NOTE | 2018-04-30 09:50 | RAD ---
CHEST FLUOROSCOPY: Date: 04/29/18 A single fluoroscopic image of chest was obtained. INDICATION: Fluoroscopic imaging during bronchoscopy. FINDINGS/IMPRESSION: A single image of the chest was taken during bronchoscopy procedure. POS: [facility]
--- NOTE | 2018-04-30 10:18 | PRG ---
DATE OF SERVICE: 04/30/2018 SUBJECTIVE: The patient is seen and examined at the bedside. He had a bronchoscopy done yesterday by Dr. Silva. He feels significantly better this morning. His appetite is fair. OBJECTIVE: VITAL SIGNS: Blood pressure is 116/67, pulse is 85, respirations 20, O2 saturation is 93% on room air. His temperature is 97.5, maximal temperature is 97.8. HEENT: His head is atraumatic and normocephalic. Sclerae nonicteric. Oral mucosa is moist. NECK: Supple. LUNGS: Clear. HEART: S1, S2 normal. No S3. No S4. ABDOMEN: Soft, nontender. Bowel sounds are present. No organomegaly. EXTREMITIES: No clubbing, cyanosis, or edema. NEUROLOGICAL: He is alert and oriented x4. There is no any motor or sensory deficits present. Cranial nerves are intact. LABORATORY DATA: Labs pending. Microbiology, acid-fast bacilli on bronchial washing specimen negative so far. On bronchial washing, a few WBCs seen and no organisms seen. A chest x-ray done this morning showed extensive interstitial and reticulonodular densities, which is stable. No pneumothorax. IMPRESSION: 1. Upper lobe predominant interstitial nodule and cavitary disease suspicious for infectious etiology with high white count and fever. The patient underwent bronchoscopy yesterday and so far we do not have any positive results or any answer what type of process he has in his lungs. He is treated as pneumonia bacterial. 2. Hypothyroidism, on replacement, chronic, stable. DISCUSSION: The patient is still receiving a ceftriaxone, azithromycin was started by Dr. Silva. We still waiting for the final report and more test results to come back on his sputum and bronchial washing. Job ID: [id number]
[2018-04-30] MEDS: Guaifenesin DM 100-10/5 ML UDCUP PO PRN ×2 (14:07→23:59)
--- NOTE | 2018-04-30 15:14 | PRG ---
DATE OF SERVICE: 04/30/2018 SUBJECTIVE: Mr. Duque is doing well. He has no new complaints. OBJECTIVE: VITAL SIGNS: Have been stable. He is afebrile, heart rate 85, respiratory rate is 20, oximetry is 93%. His AFB smears from his bronchial lavage are negative. Pathology pending on the biopsies and his washings. His bacterial cultures are negative in 24 hours. We will await pathology. He may need a surgical lung biopsy to sort through this. Job ID: [id number]
[2018-04-30] MEDS: cefTRIAXone\\ROCEPHIN 1 GM in Sodium Chloride 0.9% 100 ML IVPB SCH (15:23)
[2018-04-30] MEDS: Temazepam 15 MG CAP PO PRN (20:24)
[2018-04-30] MEDS: Acetaminophen 325 MG TAB PO PRN (23:55)
[2018-05-01] MEDS: Levothyroxine 175 MCG TAB PO SCH (05:13)
[2018-05-01 07:11] LABS: QuantiFERON-TB Gold Plus Indeterminate (Negative)
--- NOTE | 2018-05-01 08:29 | OP ---
DATE OF PROCEDURE: 04/29/2018 PROCEDURE PERFORMED: Fiberoptic bronchoscopy. INDICATION FOR PROCEDURE: Reticulonodular infiltrates with upper lobe predominance. DESCRIPTION OF PROCEDURE: The patient was sedated by Anesthesia. Bronchoscope was introduced. It was passed in the right upper lobe and lavaged. Specimens were sent for AFB, fungus, routine cultures, Gram stain, and cytology. A brush was passed into the right upper lobe, brushed in multiple segments. This was sent for pathology. Transbronchial biopsies under fluoroscopy were done in the right upper lobe with no complications. Postprocedure chest x-ray showed no pneumothorax. These were sent to Pathology. Overall, he tolerated the procedure well. He was examined 2 hours after the procedure, in no distress, had equal breath sounds. He actually was saying that he felt 100% better after the procedure than he did before the procedure interestingly enough. Hopefully, we will have results in a couple of days. Job ID: [id number]
[2018-05-01] MEDS: Benzonatate 100 MG CAP PO SCH ×3 (08:58→20:21)
[2018-05-01] MEDS: guaiFENesin ER 600 MG TAB PO SCH ×2 (08:58→20:21)
[2018-05-01] MEDS: Enoxaparin Sodium 40 MG/0.4 ML SYRINGE SC SCH (08:59)
[2018-05-01] MEDS: Famotidine 20 MG TAB PO SCH ×2 (08:59→20:21)
[2018-05-01] MEDS: Acetaminophen 325 MG TAB PO PRN ×2 (09:03→23:49)
[2018-05-01] MEDS: Guaifenesin DM 100-10/5 ML UDCUP PO PRN (09:27)
--- NOTE | 2018-05-01 12:11 | PRG ---
DATE OF SERVICE: 05/01/2018 SUBJECTIVE: Trinh Duque has no complaints. He did have a coughing spell last night and said it kept him awake all night. OBJECTIVE: VITAL SIGNS: He has had no fever that has been recorded, his heart rate is 100, respiratory rate is 20, oximetry is 95% on 3 L, and blood pressure 135/82. LUNGS: Unchanged. HEART: Unchanged. ABDOMEN: Unchanged. LABORATORY RESULTS: Biopsies and washings are still pending. ASSESSMENT AND PLAN: If we do not find anything on his bronchoscopic specimens that defines his x-ray abnormalities, we will need to proceed with surgical lung biopsy. I have discussed this with him and he is agreeable to this. We will add in some Phenergan with codeine in case he has a coughing spell again. Job ID: [id number]
[2018-05-01] MEDS: Phenergan/Codeine 10-6.25mg/5ml UDCUP PO PRN ×2 (14:25→23:47)
--- NOTE | 2018-05-01 14:47 | PRG ---
DATE OF SERVICE: 05/01/2018 SUBJECTIVE: The patient is feeling okay. Continues to have some cough, thought the guaifenesin actually made things worse. There is lot of questions regarding his condition and treatment plan. His main complaint is that he feels like he is having a lot of muscle wasting, having gone through this now for a while. OBJECTIVE: VITAL SIGNS: Temperature 98.6, pulse 102, respirations 20, and O2 sat 95% on room air. GENERAL APPEARANCE: Age-appropriate male, lying in bed comfortably. He is not tachypneic. Not coughing at the moment. He is not wearing oxygen. HEART: Regular rate and rhythm. LUNGS: Clear bilaterally with no wheezes or rales noted. ABDOMEN: Soft, nontender, and nondistended. EXTREMITIES: Warm and dry without edema. NEUROLOGICAL: The patient appears to be fully intact with no focal deficits. LABORATORY DATA: The patient's QuantiFERON is indeterminate. Bronchial washings show no growth of pathogens. Biopsies from bronch are pending. IMPRESSION AND PLAN: 1. Upper lobe infiltrate with some evidence of cavitation. So far, diagnosis has been somewhat elusive. Continuing to treat symptomatically and covered with Rocephin. Bronchial washings and biopsy results are all still pending for final. We will consider possible surgical lung biopsy, only should this fall short of giving us from diagnosis. Pulmonary and ID continuing to follow. 2. Hypothyroidism. Continue with his usual home regimen. Job ID: [id number]
[2018-05-01] MEDS: cefTRIAXone\\ROCEPHIN 1 GM in Sodium Chloride 0.9% 100 ML IVPB SCH (15:45)
--- NOTE | 2018-05-01 16:59 | PRG ---
DATE OF SERVICE: 05/01/2018 SUBJECTIVE: Sitting up in bed. Does not have oxygen on. Feels a little better. The sputum has dried up quite significantly. OBJECTIVE: VITAL SIGNS: T-max 99.2 two days ago. GENERAL: He is awake, alert, oriented. LUNGS: Fairly clear breath sounds at this time with faint inspiratory crackles in the left base. HEART: S1, S2. Regular rate. No S3 or S4. ABDOMEN: Soft, not distended or tender. EXTREMITIES: Moves all extremities equally. LABORATORY DATA: White cell count 16.4, hemoglobin 12.9, platelets 514. Histoplasma antibody negative, antigen less than 0.5. HIV nonreactive. Lung biopsies are pending at this point in time. ASSESSMENT AND DISCUSSION: Chronic cough with exacerbation lately. This has been going on for months now. Abnormalities noted on CT scan which show quite symmetric interstitial nodular pattern. Differential diagnosis again atypical infections are not yet completely ruled out, but that appear to be less likely. An etiopathic process with organizing pneumonia or other type of hypersensitivity pneumonia is considered possible. Waiting on biopsies and Coccidioides immitis serology as well. Job ID: [id number]
[2018-05-01] MEDS: Temazepam 15 MG CAP PO PRN (23:47)
[2018-05-02] MEDS: Levothyroxine 175 MCG TAB PO SCH (05:27)
[2018-05-02] MEDS: Enoxaparin Sodium 40 MG/0.4 ML SYRINGE SC SCH (08:21)
[2018-05-02] MEDS: Famotidine 20 MG TAB PO SCH ×2 (08:21→21:20)
[2018-05-02] MEDS: Benzonatate 100 MG CAP PO SCH ×3 (08:22→21:21)
[2018-05-02] MEDS: guaiFENesin ER 600 MG TAB PO SCH ×2 (08:22→21:20)
[2018-05-02] MEDS: Acetaminophen 325 MG TAB PO PRN ×2 (08:24→21:25)
[2018-05-02] MEDS: Phenergan/Codeine 10-6.25mg/5ml UDCUP PO PRN ×2 (13:57→21:21)
[2018-05-02 15:16] LABS: Bilirubin Negative (Negative); Blood, Urine Negative (Negative); Clarity CLEAR (Clear); Glucose, Urine (Dipstick) Negative (Negative); Leukocyte Negative (Negative); Nitrite Negative (Negative); Protein, Urine (Dipstick) Negative (Neg-Trace); Specific Gravity, Urine 1.014 (1.002-1.036)
[2018-05-02 15:18] LABS: Bacteria/HPF None Seen HPF (None Seen); Hyaline Casts/LPF 0-3 HYALINE CAST LPF (0-3 Hyaline); Squamous Epithelial 0-3 HPF (0-3); WBC/HPF 0-3 HPF (0-3)
[2018-05-02 15:28] LABS: Base Excess (BEa) 2.6 mEq/L (-2.0 to +3.0); CO2 Tension 36.7 mmHg (35.0-45.0); Calcium, Ionized 1.16 mmol/L (1.12-1.30); Carboxyhemoglobin (COHb) 1.2 gm% (0.0-3.0); Hemoglobin (Hb) 14.6 g/dL (14.0-18.0); O2 Tension (PaO2) 60.7 mmHg (> 80.0); Potassium - ABG Lab 4.16 mmol/L (3.70-5.30); pH, Arterial 7.47 (7.35-7.45)
[2018-05-02 15:31] LABS: Puncture Site RRA
--- NOTE | 2018-05-02 15:55 | PRG ---
DATE OF SERVICE: 05/02/2018 SUBJECTIVE: Mr. Duque says he is feeling great. OBJECTIVE: VITAL SIGNS: He is afebrile. Temperature maximum is 100, heart rate 100, respiratory rate 18, oximetry is 95% on 3 L. Checking oximetry appears to be 88 to 89 on room air. I have ordered a blood gas. We can get more accurate measurement as to whether or not he needs home O2. Blood pressure 137/79. LUNGS: Unchanged. HEART: Unchanged. ABDOMEN: Unchanged. Surprisingly, he had hemosiderin-laden macrophages, transbronchial biopsies in his right upper lobe, fungal stains and AFB stains have been negative. This certainly could be an alveolar hemorrhage syndrome, especially with a sedimentation rate greater than 100 on the 13th and still greater than 50 today. ANCA panel was sent today. This will be back for 5 days per my discussion with the lab. In my opinion, he could be discharged home and followed as an outpatient. If he has a positive ANCA panel, then I will treat him with immunosuppressive therapy. If not, then he will have a surgical lung biopsy. Job ID: [id number]
[2018-05-02 16:12] LABS: Fungus Stain Final report (.)
[2018-05-02 16:12] LABS: Fungus Stain Final report (.)
[2018-05-02 16:12] LABS: A. flavus Negative (Neg:<1:1); A. fumigatus Negative (Neg:<1:1); A. niger Negative (Neg:<1:1); Blastomyces AB Negative (Neg:<1:1)
--- NOTE | 2018-05-02 18:03 | PRG ---
DATE OF SERVICE: 05/02/2018 SUBJECTIVE: Feeling about the same. Still a bit dyspneic. Not much cough. No sputum production. No abdominal pain. No diarrhea. No genitourinary symptoms. OBJECTIVE: VITAL SIGNS: T-max 100, blood pressure 130/82, pulse 96, respirations 18, O2 saturation 92% to 95%. LUNGS: With scattered inspiratory crackles, particularly clustered at the bases. HEART: S1 and S2, regular rate. ABDOMEN: Soft. NEUROLOGIC: Nonfocal. LABORATORY DATA: White cell count 16.4, hemoglobin 12, platelets 514. A number of antibody tests are pending. The ones resulted are negative including histoplasma. Coccidioides antibodies pending at this point in time. CRP was 24.31. Pathology report demonstrates benign lung tissue, intra-alveolar macrophages and neutrophils, enterococcus, iron-laden macrophages noted. ASSESSMENT AND DISCUSSION: Chronic cough with exacerbation lately and abnormalities on chest x-ray and CT scan with quite symmetric interstitial nodular pattern and the path showing iron-laden macrophages, some increased neutrophils. Most of the atypical infection panels are negative with Coccidioides still pending, other fungal etiologies are unlikely. Possibility of hypersensitivity pneumonitis or other forms of interstitial pneumonitis including cryptogenic organizing pneumonia, also pulmonary hemosiderosis in view of the iron-laden macrophages to be considered as well. It looks like the next management initiative will be to give him steroids and see about his clinical and radiological response and then decide in the outpatient setting if he is going to need an open lung biopsy or not. Job ID: [id number]
[2018-05-02] MEDS: Temazepam 15 MG CAP PO PRN (21:21)
[2018-05-03] MEDS: Levothyroxine 175 MCG TAB PO SCH (05:48)
[2018-05-03] MEDS: Acetaminophen 325 MG TAB PO PRN ×3 (05:48→16:55)
[2018-05-03] MEDS: Enoxaparin Sodium 40 MG/0.4 ML SYRINGE SC SCH (07:57)
[2018-05-03] MEDS: Famotidine 20 MG TAB PO SCH (07:57)
[2018-05-03] MEDS: guaiFENesin ER 600 MG TAB PO SCH (07:57)
[2018-05-03] MEDS: Benzonatate 100 MG CAP PO SCH ×2 (07:57→14:44)
[2018-05-03 09:23] LABS: Aspergillus fumigatus Negative (Negative); Aureobasidium pullalans IgG Negative (Negative); Micropolyspora faeni Negative (Negative); Pigeon Droppings IgG Negative (Negative); T sacchari Negative (Negative); T vulgaris Negative (Negative)
--- NOTE | 2018-05-03 10:54 | PDOC.EVN ---
Event Note - Event Note Event Note: ABG last night was on oxygen and showed persisten A:a gradient. Sats today 88% on oxygen and again on RA. 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 Will have outpatient follow up with Dr. Silva in one week.
[2018-05-03] MEDS: Guaifenesin DM 100-10/5 ML UDCUP PO PRN ×2 (12:06→16:55)
[2018-05-03 17:03] VITALS: BP 143/95; TEMP 97.8
[2018-05-05 14:15] LABS: Cytoplasmic (C-ANCA) <1:20 titer (Neg:<1:20); Myeloperoxidase AutoAbs <9.0 U/mL (0.0-9.0); Perinuclear (P-ANCA) <1:20 titer (Neg:<1:20); Proteinase-3 AutoAbs Less than 3.5 U/mL (0.0-3.5)
== END 2018-05-03 17:52 | disposition home or self-care (01) | DRG 871 ==
LOC: ERS 20:03 → T4-B 22:57 → ERHOLD 04-25 02:22 → T4-B 04-25 13:34
PROVIDERS: ADMIT Internal Medicine; ATTEND Internal Medicine
PROC: 0BD48ZX Extraction of Right Upper Lobe Bronchus, Via Natural or Artificial Opening Endoscopic, Diagnostic (ICD-10-PCS; principal; 2018-04-29)
PROC: 0BB48ZX Excision of Right Upper Lobe Bronchus, Via Natural or Artificial Opening Endoscopic, Diagnostic (ICD-10-PCS; 2018-04-29)
DX: A41.9 Sepsis, unspecified organism (principal); J18.9 Pneumonia, unspecified organism; J96.01 Acute respiratory failure with hypoxia; R04.89 Hemorrhage from other sites in respiratory passages; E03.9 Hypothyroidism, unspecified; F17.200 Nicotine dependence, unspecified, uncomplicated; M19.90 Unspecified osteoarthritis, unspecified site; Y95 Nosocomial condition; Z79.899 Other long term (current) drug therapy
CPT/HCPCS: 36415; 71045; 71046; 71275; 76000; 80048; 80053; 81001; 82550; 82805; 83520; 83605; 83880; 84484; 85025; 85652; 86140; 86256; 86331; 86480; 86602; 86606; 86612; 86635; 86671; 86698; 86803; 87040; 87070; 87102; 87116; 87149; 87205; 87206; 87385; 87389; 87449; 87633; 87804; 87899; 88112; 88305; 88312; 88313; 93005; 93306; 94640; 96361; 96365; 96366; 96367; J0131; J0456; J0696; J1100; J1650; J2001; J2405; J2704; J3010; J7050; J7611; J7620; Q9966

== ENCOUNTER 2018-05-10 08:41 | Outpatient (CLI) | payer MEDICARE ==
--- NOTE | 2018-05-10 09:21 | RAD ---
F2 views chest HISTORY: Dyspnea. PA and lateral views of the chest obtained. There is interval development of extensive interstitial changes throughout the lungs compatible with interstitial fibrosis. These were not present on the previous comparison exam from 2014. Findings con cerning for lung fibrotic changes. No evidence of pneumonia seen. IMPRESSION: Extensive multi lobar lung increased interstitial markings compatible with interstitial f ibrosis.
== END 2018-05-10 08:42 | disposition home or self-care (01) ==
LOC: RAD 08:41
PROVIDERS: ATTEND Internal Medicine Critical Care Medicine
DX: R06.00 Dyspnea, unspecified (principal); J98.4 Other disorders of lung
CPT/HCPCS: 71046

== ENCOUNTER 2018-05-10 14:27 | Outpatient (CLI) | payer MEDICARE ==
--- NOTE | 2018-05-10 15:53 | CT ---
HIGH RESOLUTION CHEST CT PERFORMED WITHOUT CONTRAST: COMPARISON: A CT angio of chest dated 04/24/2018. HISTORY: The patient had abnormal chest x-ray findings leading to a CT examination. This was done as followup . There is some mild mediastinal adenopathy of smaller prevascular nodes, but also right paratracheal a nd hilar nodes are noted as well as some subcarinal adenopathy. Lungs show more of a central and slightly more upper lobe distribution of lung changes. The changes in the more central portion shows some evidence of consolidation in the peribronchovascular area with fairly well-defined numerous more peripheral nodules seen. These are soft tissue attenuation. There is no honeycombing present. There is not any significant ground-glass opacity or evidence for traction bronchiectasis. IMPRESSION: Diffuse lung changes which occupy a more central and upper lobe predominance with some peribronchovas cular consolidation with numerous fairly well defined soft tissue nodules. One of the prime consider ations for type of appearance to be considered would be sarcoidosis. Some type of pneumoconiosis wou ld not be excluded. This would be an unusual pattern for hypersensitivity pneumonitis. Although not totally excluded, the other entity would be a diffuse invasive mucinous adenocarcinoma. Findings were discussed with Dr. Silva. CODE CR POS: TP
== END 2018-05-10 14:28 | disposition home or self-care (01) ==
LOC: BICCT 14:27
PROVIDERS: ATTEND Internal Medicine Critical Care Medicine
DX: J84.10 Pulmonary fibrosis, unspecified (principal); R91.8 Other nonspecific abnormal finding of lung field
CPT/HCPCS: 71046; 71250